=== PATIENT | male | born 1965 | race Caucasian/White ===

== ENCOUNTER → 2018-06-14 11:32 | Outpatient (CLI) | payer MEDICAID, SELFPAY | PROVIDERS: PCP Family Medicine; Visit Provider Ophthalmology | DX: H10.402 Unspecified chronic conjunctivitis, left eye (principal) | CPT/HCPCS: 87070; 87077; 87110; 87140; 87147; 87186; 87205; 87252 ==

== ENCOUNTER 2018-11-07 10:02 | Emergency (ER) | payer MEDICAID, SELFPAY ==
[2018-11-07 10:20] VITALS: BP 146/72; PULSE 74; RESP 18; TEMP 36.8; O2SAT 97
--- NOTE | 2018-11-07 10:43 | ED.EYEPROB ---
HPI - Eye Problem General Chief complaint: Eye Problems Stated complaint: Left eye is swollen Time Seen by Provider: 11/07/18 10:43 Source: patient Mode of arrival: ambulatory Limitations: no limitations History of Present Illness HPI Narrative: 53-year-old male here for evaluation of a reddened area to his left eye. He does were glasses. Many years ago he had PRK LASIK performed. 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 States he has tried to get a referral from his speech language therapist to see a ?specialist? but this has not been done. No fevers. No sinus congestion. Does have some blurry vision however no other eye changes Related Data Previous Rx's Medication Instructions Recorded clindamycin HCl 300 mg PO Q6H 5 Days #20 cap 11/07/18 Allergies Allergy/AdvReac Type Severity Reaction Status Date / Time No Known Drug Allergies Allergy Verified 11/07/18 10:30 Review of Systems Constitutional Denies fever(s) and Denies headache(s) Eyes Comments: Redness to the left eye blurry vision of the left eye ENT Ears, Nose, Mouth, and Throat: Denies vertigo, Denies headache(s), Denies disequilibrium and Denies sore throat Cardiovascular Denies chest pain and Denies dyspnea Respiratory Denies dyspnea Integumentary/Breasts Comments: Redness to the left eye Neurologic Denies abnormal speech, Denies confusion, Denies vertigo, Denies headache(s) and Denies disequilibrium Psychiatric Denies confusion Hematologic/Lymphatic Denies easy bleeding and Denies easy bruising PFSH Medical History Sleep apnea (Acute) Surgical History (Updated 09/25/17 @ 06:02 by Conversion Provider) Status post arthroscopy Family History (Updated 01/30/17 @ 00:00 by Conversion Provider) Father Age: 86 Leukemia Mother Age: 79 Multiple sclerosis Social History Smoking Status: Never smoker Family History (Updated 01/30/17 @ 00:00 by Conversion Provider) Father Age: 86 Leukemia Mother Age: 79 Multiple sclerosis Social History Smoking Status: Never smoker Exam Initial Vital Signs Initial Vital Signs: Vital Signs Temperature 98.2 F 11/07/18 10:20 Pulse Rate 74 11/07/18 10:20 Respiratory Rate 18 11/07/18 10:20 Blood Pressure 146/72 H 11/07/18 10:20 Pulse Oximetry 97 11/07/18 10:20 Const General: cooperative, comfortable, well developed, well groomed and No acute distress Orientation: alert, awake and oriented x3 HENMT Head: normal to inspection and normocephalic Eyes Other: Right eye unremarkable Left eye with redness and swelling in the superior medial canthus. Was able to express some purulent material from this area. The eye itself to include the sclera is unremarkable. Resp Effort & Inspection: normal respiratory effort Skin Other: There is no surrounding erythema to the left eye Neuro General: alert and awake Extrem General: normal to inspection and capillary refill normal Course Vital Signs - 8 hr 11/07/18 10:20 Temperature 98.2 F Pulse Rate 74 Respiratory Rate 18 Blood Pressure 146/72 H Pulse Oximetry 97 MDM - Eye Problem MDM Narrative Medical decision making narrative: Patient with what appears to be Dacryocystitis. Will place on antibiotics. We discussed other treatment options and return precautions. He expressed understanding and agreement with plan. Discharge Plan Departure Patient Disposition: Home Clinical Impression: Dacrocystitis Qualifiers: Laterality: left Qualified Code(s): H04.302 - Unspecified dacryocystitis of left lacrimal passage Instructions: DI for Red Eye Activity Restrictions/Additional Instructions: Use antibiotics as directed. Also recommend that you do light pressure with a warm washcloth over the infected area. You can contact the health human resources project coordinator here at the hospital at [phone] to help establish a primary provider. Return to the emergency department for any new or worsening symptoms Prescriptions: New clindamycin HCl 300 mg capsule 300 mg PO Q6H 5 Days Qty: 20 RF: 0 Referrals: Destiny Melendez MD [Primary Care Provider] -
== END 2018-11-07 11:11 | disposition home or self-care (01) ==
PROVIDERS: Emergency Provider Emergency Medicine; PCP Family Medicine
DX: H04.302 Unspecified dacryocystitis of left lacrimal passage (principal)
CPT/HCPCS: 99282; 99283

== ENCOUNTER 2019-03-13 08:57 | Emergency (ER) | payer MEDICAID, SELFPAY ==
[2019-03-13] VITALS (10 sets, daily range): BP systolic 130–154; BP diastolic 71–87; PULSE 71–92; RESP 15–96; TEMP 36.7–38.3; O2SAT 92–99
--- NOTE | 2019-03-13 09:18 | DI.RAD.S_ITS ---
PROCEDURE: XR CHEST 1V INDICATIONS: suspected sepsis TECHNIQUE: One view of the chest was acquired. COMPARISON: None. FINDINGS: Surgical changes and devices: None. Lungs and pleura: Lungs are clear. No pleural effusions or pneumothorax. Mediastinum: Mediastinal contours appear normal. Heart size is normal. Bones and chest wall: No suspicious bony lesions. Left shoulder clavicle osteophyte. Overlying soft tissues appear unremarkable. IMPRESSION: No acute cardiopulmonary abnormality. Dictated by: Alejandro Hilton M.D. on 03/13/2019 at 10:23 Approved by: Alejandro Hilton M.D. on 03/13/2019 at 10:24
--- NOTE | 2019-03-13 09:57 | ED.FEVER ---
HPI - Fever General Chief Complaint: Fever Stated Complaint: headache/dry cough/fever/chills x7days Time Seen by Provider: 03/13/19 09:15 Source: patient Mode of arrival: Ambulatory History of Present Illness HPI Narrative: Patient presents emergency department complaining of 6 days of fatigue, chills, sweats, dry cough, sore throat, and body aches. Patient also states he has a throbbing headache. patient has been having nausea and vomiting for the last several days, as well. No sick contacts that he knows of. Patient is otherwise healthy. No chest pain or shortness of breath. No abdominal pain. No dysuria or back pain. no sore throat or ear pain. no diarrhea. The only other thing patient has noticed was that he had what appeared to be an insect bite on his right knee and that this developed some redness around the area. It has not been spreading, however. Related Data Previous Rx's Medication Instructions Recorded ondansetron 4 mg PO Q6H PRN #10 tab 03/13/19 Allergies Allergy/AdvReac Type Severity Reaction Status Date / Time No Known Drug Allergies Allergy Verified 03/13/19 09:17 Review of Systems Constitutional Constitutional: Reports body ache(s), Reports chills, Reports fatigue, Reports fever(s), Denies frequent falls, Reports headache(s), Denies lethargy and Denies weakness Eyes Eyes: Denies change in vision, Denies eye discharge, Denies irritation and Denies loss of vision ENT Ears, Nose, Mouth, and Throat: Denies change in voice, Denies dizziness, Reports headache(s), Denies neck pain, Reports sore throat and Denies throat swelling Cardiovascular Cardiovascular: Denies chest pain, Denies irregular heart rhythm, Denies lightheadedness, Denies palpitations, Denies dyspnea, Denies dyspnea on exertion and Denies orthopnea Respiratory Respiratory: Reports cough, Denies dyspnea, Denies dyspnea on exertion and Denies wheezing Gastrointestinal Gastrointestinal: Denies abdominal pain, Denies change in bowel habits, Denies diarrhea, Reports nausea and Reports vomiting Genitourinary Genitourinary: Denies hematuria, Denies flank pain, Denies urinary incontinence and Denies urinary urgency Musculoskeletal Musculoskeletal: Denies back pain, Denies muscle weakness, Denies neck pain, Denies numbness and Denies tingling Integumentary/Breasts Skin/Breast: Denies pruritus, Denies erythema, Denies rash and Denies wounds Neurologic Neurologic: Denies behavioral changes, Denies confusion, Denies dizziness, Denies frequent falls, Reports headache(s), Denies loss of vision, Denies numbness, Denies tingling and Denies weakness Psychiatric Psychiatric: Denies anxiety, Denies behavioral changes, Denies confusion, Denies depression, Denies homicidal ideation and Denies suicidal ideation Endocrine Endocrine: Reports fatigue, Denies flushing and Denies palpitations Hematologic/Lymphatic Hematologic/Lymphatic: Denies easy bruising Allergic/Immunologic Allergic/Immunologic: Denies urticaria, Denies throat swelling and Denies wheezing Patient History Medical History Sleep apnea (Acute) Surgical History Status post arthroscopy Family History (Updated 01/30/17 @ 00:00 by Conversion Provider) Father Age: 87 Leukemia Mother Age: 80 Multiple sclerosis Social History Smoking Status: Never smoker Family History Father Age: 87 Leukemia Mother Age: 80 Multiple sclerosis Social History Smoking Status: Never smoker alcohol intake frequency: a few times a week Alcohol type: beer Substance Use Type: does not use Exam Initial Vital Signs Initial Vital Signs: Vital Signs Temperature 101 F H 03/13/19 09:00 Pulse Rate 92 H 03/13/19 09:00 Respiratory Rate 18 03/13/19 09:00 Blood Pressure 154/87 H 03/13/19 09:00 Pulse Oximetry 95 03/13/19 09:00 Const General: cooperative and well developed Nutritional Appearance: well nourished Orientation: alert, awake, oriented x3 and not confused HENMT Head: normocephalic and atraumatic Ears: external ears normal Nose: external nose normal and No nasal discharge Face and sinus: face symmetric and No dry mucous membranes Mouth: oral mucosae normal and moist mucous membranes Teeth and gingiva: dentition normal Throat: tonsils normal and uvula midline Eyes General: appearance normal, both eyes and all related structures Eyelids: eyelids normal Conjunctivae: conjunctivae normal Sclera: sclerae normal Pupils: PERRL EOM: EOM intact bilaterally Neck Neck: normal visual inspection, trachea midline, No lymphadenopathy, No midline deformity and No JVD Lymphatic: No lymphedema Chest Chest: normal inspection of the chest Resp Effort & Inspection: normal respiratory effort, able to speak in complete sentences, no respiratory distress and no use of accessory muscles Auscultation: clear to auscultation bilaterally, no rales, no rhonchi and no wheezes Other: Patient is mildly tachypneic, but without laboring. Cardio Rate: regular rate Rhythm: regular rhythm Heart Sounds: no click, no gallops, no murmurs and no rubs Pulses: normal peripheral pulses GI Inspection: non-distended Palpation: soft, no hepatosplenomegaly, No guarding, No pulsatile mass and No tender Auscultation: normal bowel sounds Back/Spine/Pelvis Back: No CVA tenderness Cervical Spine: cervical ROM normal and No pain with cervical ROM Thoracic/Lumbar Spine: thoracic and lumbar spine normal to inspection Skin General: no rashes or lesions noted, No jaundice and No petechiae Neuro General: alert, oriented x3, gait normal and no focal motor deficits Speech: speech normal Extrem General: full ROM, no clubbing, cyanosis or edema, no pedal edema and no calf tenderness Psych Appearance: well kempt Mental Status: mental status grossly normal Attitude: cooperative Thought Content: normal and suicidality Judgment: judgment good Course Course Course Narrative: Patient was given Tylenol, ibuprofen, IV fluids Zofran. He was worked with influenza test, labs, and chest x-ray, all of which were unremarkable. The patient was found to be feeling quite a bit better after treatment in the emergency department. I discussed with him that at this point, his symptoms are most likely viral in nature, and are consistent with other cases that we have been seen in the emergency department lately. We have discussed home management of the symptoms, as well as the usual indications for return. We have also discussed follow-up. Orders Ordered: Discontinued Medications Acetaminophen (Tylenol) 975 mg PO NOW ONE Stop: 03/13/19 09:19 Last Admin: 03/13/19 09:59 Dose: 975 mg Documented by: TASHA Sodium Chloride (Normal Saline 0.9%) 1,000 mls @ 1,000 mls/hr IV BOLUS ONE Stop: 03/13/19 10:16 Last Infusion: 03/13/19 11:30 Dose: 0 mls/hr Documented by: Admin: 03/13/19 09:58 Dose: 1,000 mls/hr Documented by: [email or web address] Sodium Chloride (Normal Saline 0.9%) 1,000 mls @ 1,000 mls/hr IV BOLUS ONE Stop: 03/13/19 13:44 Last Infusion: 03/13/19 14:11 Dose: 0 mls/hr Documented by: Admin: 03/13/19 12:55 Dose: 1,000 mls/hr Documented by: JUNIOR Ibuprofen (Advil) 800 mg PO NOW ONE Stop: 03/13/19 09:19 Last Admin: 03/13/19 09:59 Dose: 800 mg Documented by: [email or web address] Ondansetron HCl (Zofran) 4 mg IV NOW ONE Stop: 03/13/19 09:31 Last Admin: 03/13/19 10:02 Dose: 4 mg Documented by: [email or web address] Prochlorperazine (Compazine) 10 mg IV NOW ONE Stop: 03/13/19 12:52 Last Admin: 03/13/19 12:55 Dose: 10 mg Documented by: JUNIOR Vital Signs Vital signs: Vital Signs - 8 hr 03/13/19 09:00 Temperature 101 F H Pulse Rate 92 H Respiratory Rate 18 Blood Pressure 154/87 H Pulse Oximetry 95 MDM - Fever Medical Records Attestation: I reviewed the patient's medical records. Lab Data Attestation: I reviewed the patient's lab results. Result diagrams: 03/13/19 09:35 03/13/19 10:01 Labs: Lab Results 03/13/19 03/13/19 03/13/19 Range/Units 09:35 09:35 09:35 WBC 5.5 (4.5-11.0) X10^3/uL RBC 4.26 L (4.5-5.9) X10^6/uL Hgb 14.6 (13.5-17.5) g/dL Hct 41.9 (41-53) % MCV 98.4 (80-100) fL MCH 34.2 H (26-34) PG MCHC 34.8 (30-36) % RDW 13.1 (11.6-14.8) % Plt Count 108 L (150-400) X10^3/uL Neut % (Auto) 67.9 (50-75) % Lymph % (Auto) 16.2 L (25-40) % [place] % (Auto) 14.2 H (3-14) % Eos % (Auto) 1.0 L (2-4) % Baso % (Auto) 0.7 (0-2) % Neut # (Auto) 3700 (7052-3215) /uL Lymph # (Auto) 900 L (4080-8260) /uL [place] # (Auto) 800 (0-900) /uL Eos # (Auto) 100 (0-450) /uL Baso # (Auto) 0 (0-100) /uL PT 16.3 H (10.1-12.7) SECONDS INR 1.4 H (0.9-1.3) APTT 40 H (26.4-36.2) SECONDS Sodium (137-145) mmol/L Potassium (3.4-5.1) mmol/L Chloride (98-107) mmol/L Carbon Dioxide (22-32) mmol/L BUN (9-20) mg/dL Creatinine (0.66-1.25) mg/dL Estimated GFR (>60) mL/min BUN/Creatinine Ratio (6-22) Glucose (70-100) mg/dL Lactate (0.7-2.1) mmol/L Calcium (8.4-10.2) mg/dL Total Bilirubin (0.2-1.3) mg/dL AST (17-59) IU/L ALT (21-72) IU/L Alkaline Phosphatase (38-126) U/L Total Protein (6.3-8.2) g/dL Albumin (3.5-5.0) g/dL Globulin (1.7-4.1) g/dL Albumin/Globulin Ratio (1.0-2.8) Lipase (23-300) U/L Procalcitonin 0.16 (<0.5) ng/mL Urine RBC (0-5/HPF) Urine WBC (0-5/HPF) Urine Bacteria (None) Ur Culture Indicated? Micro UA Comment Influenza A & B (PCR) (Negative) 03/13/19 03/13/19 03/13/19 Range/Units 09:35 10:01 10:15 WBC (4.5-11.0) X10^3/uL RBC (4.5-5.9) X10^6/uL Hgb (13.5-17.5) g/dL Hct (41-53) % MCV (80-100) fL MCH (26-34) PG MCHC (30-36) % RDW (11.6-14.8) % Plt Count (150-400) X10^3/uL Neut % (Auto) (50-75) % Lymph % (Auto) (25-40) % Crenshaw % (Auto) (3-14) % Eos % (Auto) (2-4) % Baso % (Auto) (0-2) % Neut # (Auto) (3650-5312) /uL Lymph # (Auto) (8017-3794) /uL [place]shaw # (Auto) (0-900) /uL Eos # (Auto) (0-450) /uL Baso # (Auto) (0-100) /uL PT (10.1-12.7) SECONDS INR (0.9-1.3) APTT (26.4-36.2) SECONDS Sodium 131 L (137-145) mmol/L Potassium 3.9 (3.4-5.1) mmol/L Chloride 97 L (98-107) mmol/L Carbon Dioxide 26 (22-32) mmol/L BUN 6 L (9-20) mg/dL Creatinine 0.50 L (0.66-1.25) mg/dL Estimated GFR > 60.0 (>60) mL/min BUN/Creatinine Ratio 12.0 (6-22) Glucose 145 H (70-100) mg/dL Lactate 1.7 (0.7-2.1) mmol/L Calcium 8.2 L (8.4-10.2) mg/dL Total Bilirubin 1.6 H (0.2-1.3) mg/dL AST 89 H (17-59) IU/L ALT 33 (21-72) IU/L Alkaline Phosphatase 142 H (38-126) U/L Total Protein 8.1 (6.3-8.2) g/dL Albumin 3.6 (3.5-5.0) g/dL Globulin 4.5 H (1.7-4.1) g/dL Albumin/Globulin Ratio 0.8 L (1.0-2.8) Lipase 123 (23-300) U/L Procalcitonin (<0.5) ng/mL Urine RBC (0-5/HPF) Urine WBC (0-5/HPF) Urine Bacteria (None) Ur Culture Indicated? Micro UA Comment Influenza A & B (PCR) Negative (Negative) 03/13/19 Range/Units 12:46 WBC (4.5-11.0) X10^3/uL RBC (4.5-5.9) X10^6/uL Hgb (13.5-17.5) g/dL Hct (41-53) % MCV (80-100) fL MCH (26-34) PG MCHC (30-36) % RDW (11.6-14.8) % Plt Count (150-400) X10^3/uL Neut % (Auto) (50-75) % Lymph % (Auto) (25-40) % C[place]shaw % (Auto) (3-14) % Eos % (Auto) (2-4) % Baso % (Auto) (0-2) % Neut # (Auto) (1040-5088) /uL Lymph # (Auto) (4758-7912) /uL C[place]shaw # (Auto) (0-900) /uL Eos # (Auto) (0-450) /uL Baso # (Auto) (0-100) /uL PT (10.1-12.7) SECONDS INR (0.9-1.3) APTT (26.4-36.2) SECONDS Sodium (137-145) mmol/L Potassium (3.4-5.1) mmol/L Chloride (98-107) mmol/L Carbon Dioxide (22-32) mmol/L BUN (9-20) mg/dL Creatinine (0.66-1.25) mg/dL Estimated GFR (>60) mL/min BUN/Creatinine Ratio (6-22) Glucose (70-100) mg/dL Lactate (0.7-2.1) mmol/L Calcium (8.4-10.2) mg/dL Total Bilirubin (0.2-1.3) mg/dL AST (17-59) IU/L ALT (21-72) IU/L Alkaline Phosphatase (38-126) U/L Total Protein (6.3-8.2) g/dL Albumin (3.5-5.0) g/dL Globulin (1.7-4.1) g/dL Albumin/Globulin Ratio (1.0-2.8) Lipase (23-300) U/L Procalcitonin (<0.5) ng/mL Urine RBC None seen (0-5/HPF) Urine WBC None seen (0-5/HPF) Urine Bacteria None seen (None) Ur Culture Indicated? Cult not indicated Micro UA Comment Microscopic normal Influenza A & B (PCR) (Negative) Point of Care Testing Rapid Strep A Negative Urine Dip Bedside Urine Glucose 100 mg/dl Bedside Urine Bilirubin - Negative Bedside Urine Ketone + 15 Urine Specific [place] 1.010 Bedside Urine Occult Blood - Negative Bedside Urine pH 6.5 Bedside Urine Protein +/- 15 Bedside Urine Urobilinogen 1+ 2mg Bedside Urine Nitrite - Negative Bedside Urine Leukocytes +/- 15 Esterase Imaging Data Chest x-ray: Radiologist's impression: [address] [address] XRay Report Signed Patient: Gavin Gomez [facility]#: [id number] : 1965Acct:[id number] Age/Sex: 53 / MDate of Service: 03/13/19 Loc: ED Accession Number: [id number] Procedure: XR chest 1V Ordering Provider: Jaleesa Dougherty MD PROCEDURE: XR CHEST 1V INDICATIONS: suspected sepsis TECHNIQUE: One view of the chest was acquired. COMPARISON: None. FINDINGS: Surgical changes and devices: None. Lungs and pleura: Lungs are clear. No pleural effusions or pneumothorax. Mediastinum: Mediastinal contours appear normal. Heart size is normal. Bones and chest wall: No suspicious bony lesions. Left shoulder clavicle osteophyte. Overlying soft tissues appear unremarkable. IMPRESSION: No acute cardiopulmonary abnormality. Dictated by: Alejandro Hilton M.D. on 03/13/2019 at 10:23 Approved by: Alejandro Hilton M.D. on 03/13/2019 at 10:24 Discharge Plan Departure Patient Disposition: Home Clinical Impression: Viral infection Discharge Date/Time: 03/13/19 14:15 Instructions: DI for Viral Syndrome, DI for Fever (Symptom) -- Adult Activity Restrictions/Additional Instructions: Your labs, chest x-ray, and influenza test all looked good. You most likely have one of the many influenza-like viruses that go around this time of year, but do not trigger a positive flu test. Please get plenty of fluids to drink, and take ibuprofen 600mg every 6 hours and Tylenol 650 mg every 4 hours for fever. You may take the nausea medicine, as needed. Prescriptions: New ondansetron 4 mg tablet,disintegrating 4 mg PO Q6H PRN (Reason: nausea and vomiting) Qty: 10 RF: 0 Referrals: Destiny Melendez MD [Primary Care Provider] -
[2019-03-13] MEDS: SODIUM CHLORIDE 0.9% 1,000 ML 1000 ML IV ×2 (09:58→12:55)
[2019-03-13] MEDS: IBUPROFEN 400 MG TABLET 800 MG PO (09:59)
[2019-03-13] MEDS: ACETAMINOPHEN 325 MG TABLET 975 MG PO (09:59)
[2019-03-13] MEDS: ONDANSETRON 4 MG/2 ML INJ IV (10:02)
[2019-03-13 10:03] LABS: INR 1.4 (0.9-1.3); Prothrombin Time 16.3 SECONDS (10.1-12.7)
[2019-03-13 10:06] LABS: Lactate (Lactic Acid) 1.7 mmol/L (0.7-2.1); PTT Partial Thromboplastin Tim 40 SECONDS (26.4-36.2)
[2019-03-13 10:09] LABS: Add Manual Diff / Slide Review NO; Basophils Absolute Auto 0 /uL (0-100); Basophils Percent Auto 0.7 % (0-2); Eosinophils Absolute Auto 100 /uL (0-450); Hematocrit 41.9 % (41-53); Hemoglobin 14.6 g/dL (13.5-17.5); Lymphocytes Absolute Auto 900 /uL (1100-4500); Lymphocytes Percent Auto 16.2 % (25-40); Mean Corpuscular HGB Conc 34.8 % (30-36); Mean Corpuscular Hemoglobin 34.2 PG (26-34); Mean Corpuscular Volume 98.4 fL (80-100); Monocytes Absolute Auto 800 /uL (0-900); Monocytes Percent Auto 14.2 % (3-14); Neutrophils Absolute Auto 3700 /uL (1500-7000); Neutrophils Percent Auto 67.9 % (50-75); Platelet Count 108 X10^3/uL (150-400); Red Blood Cell Count 4.26 X10^6/uL (4.5-5.9); Red Cell Distribution Width 13.1 % (11.6-14.8); White Blood Cell Count 5.5 X10^3/uL (4.5-11.0)
[2019-03-13 10:22] LABS: Alanine Aminotransferase 33 IU/L (21-72); Albumin 3.6 g/dL (3.5-5.0); Albumin Globulin Ratio 0.8 (1.0-2.8); Alkaline Phosphatase 142 U/L (38-126); Aspartate Aminotransferase 89 IU/L (17-59); Bilirubin Total 1.6 mg/dL (0.2-1.3); Blood Urea Nitrogen 6 mg/dL (9-20); Calcium 8.2 mg/dL (8.4-10.2); Carbon Dioxide 26 mmol/L (22-32); Chloride 97 mmol/L (98-107); Estimated Glomerular Filt Rate > 60.0 mL/min (>60); Globulin 4.5 g/dL (1.7-4.1); Glucose 145 mg/dL (70-100); HEMOLYSIS < 15 (0-50); Lipase 123 U/L (23-300); Potassium 3.9 mmol/L (3.4-5.1); Sodium 131 mmol/L (137-145); Total Protein 8.1 g/dL (6.3-8.2)
[2019-03-13 10:47] LABS: Influenza A and B by PCR Rapid Negative (Negative)
[2019-03-13 10:52] LABS: Procalcitonin 0.16 ng/mL (<0.5)
[2019-03-13] MEDS: PROCHLORPERAZINE 10 MG/2 ML VIAL IV (12:55)
[2019-03-13 12:59] LABS: Bacteria Urine None Seen; RBC Urine None Seen (0-5/HPF); WBC Urine None Seen (0-5/HPF)
[2019-03-13 13:12] LABS: Culture Indicated Urine Cult Not Indicated; Urine Comments Microscopic Normal
== END 2019-03-13 14:15 | disposition home or self-care (01) ==
PROVIDERS: Emergency Provider Emergency Medicine; PCP Family Medicine
DX: B34.9 Viral infection, unspecified (principal); R51 Headache; R50.9 Fever, unspecified; R05 Cough
CPT/HCPCS: 36415; 71045; 80053; 81003; 81015; 83605; 83690; 84145; 85025; 85610; 85730; 87040; 87400; 87502; 87880; 93005; 96361; 96374; 96375; 99285; J0780; J2405

== ENCOUNTER 2019-03-18 08:57 | Inpatient (IN) | payer MEDICAID, SELFPAY ==
[2019-03-18] VITALS (16 sets, daily range): BP systolic 119–158; BP diastolic 72–95; PULSE 76–99; RESP 17–24; TEMP 36.1–37.4; O2SAT 88–93; BMI 37.0
--- NOTE | 2019-03-18 09:16 | DI.RAD.S_ITS ---
PROCEDURE: XR CHEST 2V INDICATIONS: SOB TECHNIQUE: 2 views of the chest were acquired. COMPARISON: [facility], CR, XR CHEST 1V, 03/13/2019, 10:01. FINDINGS: Surgical changes and devices: None. Lungs and pleura: Patchy consolidation has developed in the left midlung and left lung base.. No pleural effusions or pneumothorax. Mediastinum: Mediastinal contours are normal. Heart size is normal. Bones and chest wall: No suspicious bony abnormalities. Soft tissues appear unremarkable. IMPRESSION: Multifocal left mid and lower lobe pneumonia. Recommend radiographic followup to document resolution and exclude underlying pulmonary nodule. Dictated by: Wade Sahu M.D. on 03/18/2019 at 10:38 Approved by: Wade Sahu M.D. on 03/18/2019 at 10:39
[2019-03-18] MEDS: ALBUTEROL/IPRATROPIUM 3 ML AMPUL INH (09:19)
--- NOTE | 2019-03-18 09:31 | ED.SOB ---
HPI - SOB/Dyspnea General Chief Complaint: Shortness of Breath/Dyspnea Stated Complaint: difficulty breathing Time Seen by Provider: 03/18/19 09:00 Source: patient Mode of arrival: Ambulatory Limitations: no limitations History of Present Illness HPI Narrative: 53-year-old male nonsmoker with benign medical history returns to the emergency department with a chief complaint of ongoing if not worsening upper respiratory and systemic complaints. He was seen and evaluated last week after having 6 days of fatigue, chills, sweats and dry cough as well as sore throat. He had a thorough evaluation with a clear chest x-ray and received a diagnosis of acute viral syndrome. On arrival this morning he has pulse ox of 80% on room air in obvious respiratory distress. He has anterior chest pain that is sharp and stabbing, worse with deep breath and palpation. MD Complaint: shortness of breath, cough and pain with inspiration Onset (ago): week(s) Context: recent illness Severity: moderate Consistency/Duration: constant Relieving factors: oxygen and rest Exacerbating factors: movement, coughing and inspiration Associated symptoms: fever and cough Treatment prior to arrival: none Related Data Home oxygen amount: none Home Medications Medication Instructions Recorded Confirmed No Known Home Medications 03/18/19 03/18/19 Allergies Allergy/AdvReac Type Severity Reaction Status Date / Time No Known Drug Allergies Allergy Verified 03/13/19 09:17 Review of Systems Constitutional Constitutional: Reports chills, Reports fatigue, Reports fever(s), Denies frequent falls, Denies lethargy and Denies weakness Eyes Eyes: Denies change in vision, Denies eye discharge, Denies irritation and Denies loss of vision ENT Ears, Nose, Mouth, and Throat: Denies change in voice, Denies dizziness, Denies neck pain, Denies sore throat and Denies throat swelling Cardiovascular Cardiovascular: Reports chest pain, Denies irregular heart rhythm, Denies lightheadedness, Denies palpitations, Reports dyspnea, Denies dyspnea on exertion and Denies orthopnea Respiratory Respiratory: Reports cough, Reports dyspnea, Denies dyspnea on exertion and Denies wheezing Gastrointestinal Gastrointestinal: Denies abdominal pain, Denies change in bowel habits, Denies diarrhea, Denies nausea and Denies vomiting Genitourinary Genitourinary: Denies hematuria, Denies flank pain, Denies urinary incontinence and Denies urinary urgency Musculoskeletal Musculoskeletal: Denies back pain, Denies muscle weakness, Denies neck pain, Denies numbness and Denies tingling Integumentary/Breasts Skin/Breast: Denies pruritus, Denies erythema, Denies rash and Denies wounds Neurologic Neurologic: Denies behavioral changes, Denies confusion, Denies dizziness, Denies frequent falls, Denies loss of vision, Denies numbness, Denies tingling and Denies weakness Psychiatric Psychiatric: Denies anxiety, Denies behavioral changes, Denies confusion, Denies depression, Denies homicidal ideation and Denies suicidal ideation Endocrine Endocrine: Reports fatigue, Denies flushing and Denies palpitations Hematologic/Lymphatic Hematologic/Lymphatic: Denies easy bruising Allergic/Immunologic Allergic/Immunologic: Denies urticaria, Denies throat swelling and Denies wheezing Patient History Medical History Sleep apnea (Acute) Surgical History Status post arthroscopy Family History Father Age: 87 Leukemia Mother Age: 80 Multiple sclerosis Social History Smoking Status: Never smoker alcohol intake frequency: a few times a week Alcohol type: beer Substance Use Type: does not use Exam Narrative Exam Narrative: GENERAL: [53] year old patient appears stated age. Well-nourished, well-developed patient, in mild distress. Ill-appearing, diaphoretic HEAD: Atraumatic. Normocephalic. EYES: Pupils equal round and reactive. Extraocular motions intact. No scleral icterus. No injection or drainage. ENT: Nose without bleeding, purulent drainage. Throat without erythema, tonsillar hypertrophy or exudate. Airway patent. NECK: Trachea midline. Non tender CARDIOVASCULAR: Regular rate and rhythm without murmurs, gallops, or rubs. RESPIRATORY: Coarse breath sounds in all haley GASTROINTESTINAL: Abdomen soft, non-tender, nondistended. EXTREMITIES: No edema or joint tenderness. BACK: Nontender without deformity or crepitance. No flank tenderness. NEURO: AOx3. SKIN: No rash or erythema of visible areas Initial Vital Signs Initial Vital Signs: Vital Signs Temperature 99.3 F 03/18/19 09:04 Pulse Rate 99 H 03/18/19 09:04 Respiratory Rate 24 03/18/19 09:04 Blood Pressure 144/80 H 03/18/19 09:04 Pulse Oximetry 88 L 03/18/19 09:04 Course Orders Ordered: ED Orders 03/18/19 09:16 XR chest 2V Stat Arterial Blood Gas Stat Blood Culture Stat 03/18/19 09:45 Basic Metabolic Panel Stat Complete Blood Count AUTO DIFF Stat Influenza A and B by PCR Rapid Stat Lactate (Lactic Acid) Stat Procalcitonin Stat Troponin & CK Cardiac Panel Stat 03/18/19 09:50 Arterial Blood Gas Routine Acetaminophen (Tylenol) 650 mg PO Q6HR PRN PRN Reason: As Needed for Fever/Mild Pain Calcium Carbonate (Tums) 1,000 mg PO Q4HR PRN PRN Reason: Dyspepsia Enoxaparin Sodium (Lovenox) 40 mg SUBCUT DAILY MARIE Ceftriaxone Sodium/Dextrose (Rocephin) 1 gm in 50 mls @ 100 mls/hr IV Q24H MARIE Azithromycin 500 mg/ Dextrose 250 mls @ 250 mls/hr IV Q24H MARIE Ibuprofen (Advil) 600 mg PO Q6HR PRN PRN Reason: As Needed for Fever/Mild Pain Ondansetron HCl (Zofran Odt) 4 mg PO Q8HR PRN PRN Reason: Nausea And Vomiting Discontinued Medications Albuterol/Ipratropium (Duoneb) 3 ml INH NOW ONE Stop: 03/18/19 09:13 Last Admin: 03/18/19 09:19 Dose: 3 ml Documented by: MARLEE Albuterol/Ipratropium (Duoneb) 3 ml INH NOW ONE Stop: 03/18/19 09:15 Last Admin: 03/18/19 11:08 Dose: Not Given Documented by: SONI Sodium Chloride (Normal Saline 0.9%) 1,000 mls @ 1,000 mls/hr IV BOLUS ONE Stop: 03/18/19 10:13 Last Infusion: 03/18/19 12:22 Dose: 0 mls/hr Documented by: Admin: 03/18/19 09:43 Dose: 1,000 mls/hr Documented by: ANTHONY Azithromycin 500 mg/ Dextrose 250 mls @ 250 mls/hr IV NOW ONE Stop: 03/18/19 10:49 Last Infusion: 03/18/19 12:55 Dose: 0 mls/hr Documented by: Admin: 03/18/19 11:44 Dose: 250 mls/hr Documented by: SONI Methylprednisolone (Solu-Medrol 125 Mg Vial) 125 mg IV NOW ONE Stop: 03/18/19 09:15 Last Admin: 03/18/19 09:43 Dose: 125 mg Documented by: ANTHONY Vital Signs Vital signs: Vital Signs - 8 hr 03/18/19 09:04 03/18/19 09:31 03/18/19 11:00 Temperature 99.3 F Pulse Rate 99 H 85 87 Respiratory Rate 24 20 17 Blood Pressure 144/80 H Blood Pressure [Left Arm] 158/78 H Pulse Oximetry 88 L 90 L MDM - SOB/Dyspnea Lab Data Result diagrams: 03/18/19 09:45 03/18/19 09:45 Labs: Lab Results 03/18/19 03/18/19 03/18/19 Range/Units 09:45 09:45 09:45 WBC 5.6 (4.5-11.0) X10^3/uL RBC 4.49 L (4.5-5.9) X10^6/uL Hgb 15.1 (13.5-17.5) g/dL Hct 44.1 (41-53) % MCV 98.2 (80-100) fL MCH 33.7 (26-34) PG MCHC 34.4 (30-36) % RDW 13.1 (11.6-14.8) % Plt Count 136 L (150-400) X10^3/uL Neut % (Auto) 78.2 H (50-75) % Lymph % (Auto) 13.3 L (25-40) % [place] % (Auto) 7.0 (3-14) % Eos % (Auto) 1.0 L (2-4) % Baso % (Auto) 0.5 (0-2) % Neut # (Auto) 4400 (2854-2100) /uL Lymph # (Auto) 700 L (6014-0300) /uL [place] # (Auto) 400 (0-900) /uL Eos # (Auto) 100 (0-450) /uL Baso # (Auto) 0 (0-100) /uL ABG pH (7.35-7.45) ABG pCO2 (35-45) mmHg ABG pO2 (80-100) mmHg ABG HCO3 (22-26) mmol/L ABG Total CO2 (21-31) mmol/L ABG O2 Saturation (95-100) % ABG Base Excess (-2-2) mmol/L FiO2 Sodium 133 L (137-145) mmol/L Potassium 4.0 (3.4-5.1) mmol/L Chloride 95 L (98-107) mmol/L Carbon Dioxide 25 (22-32) mmol/L BUN 9 (9-20) mg/dL Creatinine 0.50 L (0.66-1.25) mg/dL Estimated GFR > 60.0 (>60) mL/min BUN/Creatinine Ratio 18.0 (6-22) Glucose 134 H (70-100) mg/dL Lactate (0.7-2.1) mmol/L Calcium 8.3 L (8.4-10.2) mg/dL Total Creatine Kinase 230 H (55-170) U/L CK-MB (CK-2) 0.92 (<2.37) ng/mL CK-MB (CK-2) Rel Index 0.4 L (1.5-5.0) % Troponin I < 0.012 (0.01-0.034) ng/mL Procalcitonin 0.78 H (<0.5) ng/mL Influenza A & B (PCR) (Negative) 03/18/19 03/18/19 03/18/19 Range/Units 09:45 09:45 09:50 WBC (4.5-11.0) X10^3/uL RBC (4.5-5.9) X10^6/uL Hgb (13.5-17.5) g/dL Hct (41-53) % MCV (80-100) fL MCH (26-34) PG MCHC (30-36) % RDW (11.6-14.8) % Plt Count (150-400) X10^3/uL Neut % (Auto) (50-75) % Lymph % (Auto) (25-40) % [place] % (Auto) (3-14) % Eos % (Auto) (2-4) % Baso % (Auto) (0-2) % Neut # (Auto) (9968-8103) /uL Lymph # (Auto) (0910-8710) /uL [place] # (Auto) (0-900) /uL Eos # (Auto) (0-450) /uL Baso # (Auto) (0-100) /uL ABG pH 7.48 H (7.35-7.45) ABG pCO2 31.5 L (35-45) mmHg ABG pO2 55 L (80-100) mmHg ABG HCO3 23 (22-26) mmol/L ABG Total CO2 24 (21-31) mmol/L ABG O2 Saturation 91 L (95-100) % ABG Base Excess 0.0 (-2-2) mmol/L FiO2 21 Sodium (137-145) mmol/L Potassium (3.4-5.1) mmol/L Chloride (98-107) mmol/L Carbon Dioxide (22-32) mmol/L BUN (9-20) mg/dL Creatinine (0.66-1.25) mg/dL Estimated GFR (>60) mL/min BUN/Creatinine Ratio (6-22) Glucose (70-100) mg/dL Lactate 1.9 (0.7-2.1) mmol/L Calcium (8.4-10.2) mg/dL Total Creatine Kinase (55-170) U/L CK-MB (CK-2) (<2.37) ng/mL CK-MB (CK-2) Rel Index (1.5-5.0) % Troponin I (0.01-0.034) ng/mL Procalcitonin (<0.5) ng/mL Influenza A & B (PCR) Negative (Negative) Discharge Plan Departure Patient Disposition: Admitted As Inpatient Clinical Impression: Acute respiratory failure with hypoxia Community acquired pneumonia Qualifiers: Laterality: left Lung location: unspecified part of lung Qualified Code(s): J18.9 - Pneumonia, unspecified organism Referrals: Destiny Melendez MD [Primary Care Provider] - Admit Date/Time: 03/18/19 11:14 Admit Provider: Destiny Melendez
--- NOTE | 2019-03-18 09:33 | RT ---
Addendum entered by Abhinav Ortiz, RT 03/18/19 11:21: Pt assessed by me. No RT hx. Nonsmker. Here for pneumonia. Pt states no change in his WOB after neb. No RT meds indicated. Original Note: Pt c/o intense anterior chest pain, secondary to coughing, and infact, pt refuses to cough on command. Splint given to pt for split cough with instructions. Informed Dr Hutchinson
[2019-03-18] MEDS: SODIUM CHLORIDE 0.9% 1,000 ML 1000 ML IV (09:43)
[2019-03-18] MEDS: methylPREDNISolone 125 MG/2 ML VIAL IV (09:43)
[2019-03-18 09:57] LABS: Add Manual Diff / Slide Review NO; Basophils Absolute Auto 0 /uL (0-100); Basophils Percent Auto 0.5 % (0-2); Eosinophils Absolute Auto 100 /uL (0-450); Hematocrit 44.1 % (41-53); Hemoglobin 15.1 g/dL (13.5-17.5); Lymphocytes Absolute Auto 700 /uL (1100-4500); Lymphocytes Percent Auto 13.3 % (25-40); Mean Corpuscular HGB Conc 34.4 % (30-36); Mean Corpuscular Hemoglobin 33.7 PG (26-34); Mean Corpuscular Volume 98.2 fL (80-100); Monocytes Absolute Auto 400 /uL (0-900); Neutrophils Absolute Auto 4400 /uL (1500-7000); Neutrophils Percent Auto 78.2 % (50-75); Platelet Count 136 X10^3/uL (150-400); Red Blood Cell Count 4.49 X10^6/uL (4.5-5.9); Red Cell Distribution Width 13.1 % (11.6-14.8); White Blood Cell Count 5.6 X10^3/uL (4.5-11.0)
[2019-03-18 10:09] LABS: Blood Urea Nitrogen 9 mg/dL (9-20); Calcium 8.3 mg/dL (8.4-10.2); Carbon Dioxide 25 mmol/L (22-32); Chloride 95 mmol/L (98-107); Creatine Kinase 230 U/L (55-170); Estimated Glomerular Filt Rate > 60.0 mL/min (>60); Glucose 134 mg/dL (70-100); Sodium 133 mmol/L (137-145)
[2019-03-18 10:10] LABS: Lactate (Lactic Acid) 1.9 mmol/L (0.7-2.1)
--- NOTE | 2019-03-18 10:12 | PC.NURSE ---
02 sat 87/88% o2 2l placed
[2019-03-18 10:15] LABS: pH ABG 7.48 (7.35-7.45)
[2019-03-18 10:16] LABS: HCO3 ABG 23 mmol/L (22-26); PCO2 ABG 31.5 mmHg (35-45); PO2 ABG 55 mmHg (80-100); TCO2 ABG 24 mmol/L (21-31)
[2019-03-18 10:16] LABS: Influenza A and B by PCR Rapid Negative (Negative)
[2019-03-18 10:18] LABS: Fractionated Inspired Oxygen 21; Oxygen Saturation ABG 91 % (95-100)
[2019-03-18 10:21] LABS: Troponin I < 0.012 ng/mL (0.01-0.034)
[2019-03-18 10:24] LABS: CKMB % Relative Index 0.4 % (1.5-5.0); Creatine Kinase MB 0.92 ng/mL (<2.37); HEMOLYSIS 25 (0-50)
[2019-03-18 10:38] LABS: Procalcitonin 0.78 ng/mL (<0.5)
[2019-03-18] MEDS: AZITHROMYCIN 500 MG in DEXTROSE 5% IN WATER 250 ML IV (11:44)
--- NOTE | 2019-03-18 13:09 | PM.HP.1 ---
History of Present Illness History of Present Illness Date Patient Seen: 03/18/19 Time Patient Seen: 12:30 Chief complaint: difficulty breathing Narrative: The pt is a 53-year-old man with a history of sleep apnea who presents with profound shortness of breath and cough. The patient reports that for the past 2 weeks he has been feeling progressively more short of breath. He has also had a cough that is intermittently productive of yellow sputum. At the start of his illness, he had significant nausea with profuse vomiting. This was not necessarily associated with his coughing spells. He has been taking mainly fluids in since that time. For approximately the past week he has been having temperatures at home frequently. The highest temperature he caught on his thermometer was 101?F. He has been feeling wheezing as well. He was evaluated in the emergency department on 03/13 and diagnosed with a viral respiratory illness. Chest x-ray and lab work was completed at that time that was unrevealing. He was discharged home. His shortness of breath continued to worsen, and this morning he felt that he could not catch his breath. He continues to cough. His cough is productive of bloody sputum. He is feeling extremely fatigued. He now also has anterior chest pain that is worse with deep breathing. The patient denies any ear pain, significant sore throat, sinus pain or pressure. He has had mild intermittent diarrhea. He denies any significant abdominal pain. Prior to this illness he was feeling well. Patient History Medical History Sleep apnea (Acute) Surgical History Status post arthroscopy Family & Social History Family History Father Age: 87 Leukemia Mother Age: 80 Multiple sclerosis Safety & Behavioral: Feels Safe in Current Yes Environment Been Physically Hurt or No Threatened By a Person Tobacco & Substance use: Smoking Status Never smoker alcohol intake frequency a few times a week Substance Use Type does not use Meds Home Medications and Allergies Home Medications Medication Instructions Recorded Confirmed Type No Known Home Medications 03/18/19 03/18/19 History Allergies Allergy/AdvReac Type Severity Reaction Status Date / Time No Known Drug Allergies Allergy Verified 03/13/19 09:17 Review of Systems Constitutional Constitutional: Reports body ache(s), Reports chills, Reports fatigue, Reports fever(s), Reports headache(s) and Reports poor appetite ENT Ears, Nose, Mouth, and Throat: Yes headache(s), No nasal congestion, No sinus pain, No sinus pressure and No sore throat Cardiovascular Cardiovascular: Denies fast heart rate, Denies lightheadedness and Reports shortness of breath Respiratory Respiratory: Reports cough, Reports dyspnea and Reports wheezing Gastrointestinal Gastrointestinal: Denies abdominal pain, Denies constipation, Reports vomiting and Denies hematemesis Genitourinary Genitourinary: Denies dysuria Neurologic Neurologic: Reports headache(s) Endocrine Endocrine: Reports fatigue Allergic/Immunologic Allergic/Immunologic: Reports wheezing Exam Vital Signs (past 8 hours): - 03/18/19 09:04 03/18/19 09:31 03/18/19 11:00 Temperature 99.3 F Pulse Rate 99 H 85 87 Respiratory Rate 24 20 17 Blood Pressure 144/80 H Blood Pressure [Left Arm] 158/78 H Pulse Oximetry 88 L 90 L 03/18/19 12:00 03/18/19 12:30 03/18/19 13:00 Temperature 98.7 F Pulse Rate 88 90 97 H Respiratory Rate 22 21 Blood Pressure Blood Pressure [Left Arm] 155/94 H 157/95 H Pulse Oximetry 91 92 92 Oxygen Delivery Method Nasal Cannula Oxygen Flow Rate 2 Narrative Exam Narrative: GEN - NAD, sitting comfortably in bed, sweating, coughing frequently, nasal canula in place HEENT - normocephalic and atraumatic, sclera white, moist mucus membranes, throat non-erythematous and tonsils not enlarged NECK - FROM, no adenopathy, carotids pulse brisk and no JVD HEART - RRR, S1, S2 normal, no S3 or S4, no murmurs LUNGS - symmetric chest rise, no accessory muscles, end-expiratory wheezing lower lung haley, diffuse crackles left worse than right ABD - obese, nondistended, normal bowel sounds, soft, nontender EXT - no cyanosis, clubbing or edema SKIN - no rashes or suspicious lesions NEURO - grossly intact Objective Imaging Chest x-ray: Radiologist's impression: Multifocal left mid and lower lobe pneumonia. Recommend radiographic followup to document resolution and exclude underlying pulmonary nodule. Labs Result Diagrams: 03/18/19 09:45 03/18/19 09:45 Labs: Laboratory Results - last 24 hr 03/18/19 03/18/19 03/18/19 09:45 09:45 09:45 WBC 5.6 RBC 4.49 L Hgb 15.1 Hct 44.1 MCV 98.2 MCH 33.7 MCHC 34.4 RDW 13.1 Plt Count 136 L Neut % (Auto) 78.2 H Lymph % (Auto) 13.3 L [place] % (Auto) 7.0 Eos % (Auto) 1.0 L Baso % (Auto) 0.5 Neut # (Auto) 4400 Lymph # (Auto) 700 L [place] # (Auto) 400 Eos # (Auto) 100 Baso # (Auto) 0 ABG pH ABG pCO2 ABG pO2 ABG HCO3 ABG Total CO2 ABG O2 Saturation ABG Base Excess FiO2 Sodium 133 L Potassium 4.0 Chloride 95 L Carbon Dioxide 25 BUN 9 Creatinine 0.50 L Estimated GFR > 60.0 BUN/Creatinine Ratio 18.0 Glucose 134 H Lactate Calcium 8.3 L Total Creatine Kinase 230 H CK-MB (CK-2) 0.92 CK-MB (CK-2) Rel Index 0.4 L Troponin I < 0.012 Procalcitonin 0.78 H Influenza A & B (PCR) 03/18/19 03/18/19 03/18/19 09:45 09:45 09:50 WBC RBC Hgb Hct MCV MCH MCHC RDW Plt Count Neut % (Auto) Lymph % (Auto) [place] % (Auto) Eos % (Auto) Baso % (Auto) Neut # (Auto) Lymph # (Auto) [place] # (Auto) Eos # (Auto) Baso # (Auto) ABG pH 7.48 H ABG pCO2 31.5 L ABG pO2 55 L ABG HCO3 23 ABG Total CO2 24 ABG O2 Saturation 91 L ABG Base Excess 0.0 FiO2 21 Sodium Potassium Chloride Carbon Dioxide BUN Creatinine Estimated GFR BUN/Creatinine Ratio Glucose Lactate 1.9 Calcium Total Creatine Kinase CK-MB (CK-2) CK-MB (CK-2) Rel Index Troponin I Procalcitonin Influenza A & B (PCR) Negative Assessment & Plan Assessment & Plan narrative: Pt is a 53yo man with sleep apnea who presented with profound SOB and cough, found to be hypoxic to 80% in the ER. CXR revealed significant multilobar pneumonia. 1) Acute hypoxic respiratory failure due to community acquired pneumonia: Negative flu swab - Continue oxygen supplementation, titrate as tolerated - Received Ceftriaxone and Albuterol in the ER, will continue - Received Dexamethasone and Albuterol in the ER. Mild wheezing on exam. RT to consult. May need repeat steroid dosing tomorrow. - Continuous pulse ox while on oxygen - Will need repeat CXR prior to d/c 2) Nause and vomiting: Most likely due to coughing and possible underlying viral illness - Zofran PRN FEN: General diet as tolerated DVT PPx: Lovenox Code: Full Dispo: Anticipate at least 2 midnights due to severity of pneumonia and hypoxia at presentation.
--- NOTE | 2019-03-18 13:45 | PC.NURSE ---
PT ARRIVED TO ICU FLOOR CARE PT. HE IS ALERT/ORIENTED AND OBVIOUS HAVING DIFFICULTY CATCHING BREATH. HIS LUNGS ARE COARSE AND EXP WHEEZE AUSCULTATED - HE IS ON 3L NC O2 WITH SPO2 89-91%- DRY STRONG COUGH NOTED- HE DENIES PAIN AT THIS TIME- REVIEWED PLAN OF CARE AND ORIENTED TO ROOM AND BED CONTROLS- PT HAS NOT VOIDED YET SINCE ADMISSION FROM ED- SKIN IS DIAPHORETIC
[2019-03-18] MEDS: CEFTRIAXONE 1 GM/50 ML FROZ.PIGGY IV (14:16)
[2019-03-18] MEDS: ACETAMINOPHEN 325 MG TABLET 650 MG PO (15:47)
[2019-03-18] MEDS: ZOLPIDEM 5 MG TABLET PO (20:35)
[2019-03-19] VITALS (16 sets, daily range): BP systolic 120–142; BP diastolic 67–85; PULSE 62–77; RESP 20–22; TEMP 36–37.3; O2SAT 89–98
[2019-03-19 05:22] LABS: Add Manual Diff / Slide Review NO; Basophils Absolute Auto 0 /uL (0-100); Basophils Percent Auto 0.4 % (0-2); Eosinophils Absolute Auto 0 /uL (0-450); Hematocrit 43.9 % (41-53); Hemoglobin 15.1 g/dL (13.5-17.5); Lymphocytes Absolute Auto 700 /uL (1100-4500); Lymphocytes Percent Auto 11.9 % (25-40); Mean Corpuscular HGB Conc 34.4 % (30-36); Mean Corpuscular Hemoglobin 33.9 PG (26-34); Mean Corpuscular Volume 98.6 fL (80-100); Monocytes Absolute Auto 400 /uL (0-900); Monocytes Percent Auto 6.2 % (3-14); Neutrophils Absolute Auto 4900 /uL (1500-7000); Neutrophils Percent Auto 81.5 % (50-75); Platelet Count 135 X10^3/uL (150-400); Red Blood Cell Count 4.45 X10^6/uL (4.5-5.9); Red Cell Distribution Width 13.1 % (11.6-14.8)
[2019-03-19 05:31] LABS: BUN Creatinine Ratio 27.5 (6-22); Blood Urea Nitrogen 11 mg/dL (9-20); Calcium 8.6 mg/dL (8.4-10.2); Carbon Dioxide 28 mmol/L (22-32); Chloride 103 mmol/L (98-107); Estimated Glomerular Filt Rate > 60.0 mL/min (>60); Glucose 162 mg/dL (70-100); HEMOLYSIS < 15 (0-50); Potassium 4.1 mmol/L (3.4-5.1); Sodium 138 mmol/L (137-145)
--- NOTE | 2019-03-19 07:04 | PC.NURSE ---
NOC Shift: Pt sleeping well throughout night, however requiring increased oxygen needs per heated high flow NC due to decreasing sats on 6L bleed in to home CPAP unit. Placed on 45L at 40% and increased to 45% through shift to keep sats above 90 while sleeping. Coarse, wheezes throughout lungs increasing non productive cough. VSS, no tele. Denies SOB, discomfort.
--- NOTE | 2019-03-19 08:07 | DI.RAD.S_ITS ---
PROCEDURE: XR CHEST 1V INDICATIONS: f/u pneumonia, increased O2 requirement TECHNIQUE: One view of the chest was acquired. COMPARISON: [facility], CR, XR CHEST 2V, 03/18/2019, 10:15. FINDINGS: Surgical changes and devices: None. Lungs and pleura: Interval increase in patchy opacities within the left mid and lower lung zones which appear slightly more confluent compared to prior study. Small patchy right midlung opacity is also noted. Mild hazy opacity of the left costophrenic angle suggesting a small pleural effusion. No pneumothorax. Mediastinum: Mediastinal contours appear normal. Heart size is normal. Bones and chest wall: No suspicious bony lesions. Overlying soft tissues appear unremarkable. IMPRESSION: 1. Mild interval progression of patchy ill-defined left mid and lower lung opacities which appear slightly more confluent on today's examination. Likely small left pleural effusion. Findings are again compatible with multifocal pneumonia. 2. Small patchy right midlung zone opacity likely representing a focus of airspace disease. Dictated by: Scott Rosa M.D. on 03/19/2019 at 8:34 Approved by: Scott Rosa M.D. on 03/19/2019 at 8:40
--- NOTE | 2019-03-19 08:09 | PM.PN.1 ---
Subjective Subjective Date Patient Seen: 03/19/19 Time Patient Seen: 08:00 Interval history: This morning the pt reports that he is feeling improved. He believes his work of breathing has lessened. He continues to cough, but not as frequently. He is not feeling as feverish. As per nursing, the pt continues to have high oxygen needs. Overnight, he required 6L oxygen pushed through his CPAP machine to keep his O2 sats in the upper 80s/low 90s. He is now on heated high flow NC, with O2 sats in the low 90s. Exam Vital Signs (past 8 hours): - 03/19/19 02:17 03/19/19 04:00 03/19/19 06:00 Temperature 97.4 F L Pulse Rate 62 Respiratory Rate 20 Blood Pressure 127/75 Pulse Oximetry 90 L 93 92 03/19/19 07:33 Temperature 96.8 F L Pulse Rate 77 Respiratory Rate 22 Blood Pressure 120/79 Pulse Oximetry 92 Oxygen Delivery Method Heated High Flow Oxygen Flow Rate 45 Narrative Exam Narrative: Gen: NAD, laying comfortably in bed, appears improved compared to yesterday CV: RRR, no murmurs Resp: expiratory wheezing bilateral bases, no significant crackles, air movement improved from yesterday Abd: soft, nontender, nondistended Ext: no edema Objective Labs Result Diagrams: 03/19/19 04:38 03/19/19 04:38 Labs: Laboratory Results - last 24 hr 03/18/19 03/18/19 03/18/19 09:45 09:45 09:45 WBC 5.6 RBC 4.49 L Hgb 15.1 Hct 44.1 MCV 98.2 MCH 33.7 MCHC 34.4 RDW 13.1 Plt Count 136 L Neut % (Auto) 78.2 H Lymph % (Auto) 13.3 L [place] % (Auto) 7.0 Eos % (Auto) 1.0 L Baso % (Auto) 0.5 Neut # (Auto) 4400 Lymph # (Auto) 700 L [place] # (Auto) 400 Eos # (Auto) 100 Baso # (Auto) 0 ABG pH ABG pCO2 ABG pO2 ABG HCO3 ABG Total CO2 ABG O2 Saturation ABG Base Excess FiO2 Sodium 133 L Potassium 4.0 Chloride 95 L Carbon Dioxide 25 BUN 9 Creatinine 0.50 L Estimated GFR > 60.0 BUN/Creatinine Ratio 18.0 Glucose 134 H Lactate Calcium 8.3 L Total Creatine Kinase 230 H CK-MB (CK-2) 0.92 CK-MB (CK-2) Rel Index 0.4 L Troponin I < 0.012 Procalcitonin 0.78 H Nasal Screen MRSA (PCR) Influenza A & B (PCR) 03/18/19 03/18/19 03/18/19 09:45 09:45 09:50 WBC RBC Hgb Hct MCV MCH MCHC RDW Plt Count Neut % (Auto) Lymph % (Auto) [place] % (Auto) Eos % (Auto) Baso % (Auto) Neut # (Auto) Lymph # (Auto) [place] # (Auto) Eos # (Auto) Baso # (Auto) ABG pH 7.48 H ABG pCO2 31.5 L ABG pO2 55 L ABG HCO3 23 ABG Total CO2 24 ABG O2 Saturation 91 L ABG Base Excess 0.0 FiO2 21 Sodium Potassium Chloride Carbon Dioxide BUN Creatinine Estimated GFR BUN/Creatinine Ratio Glucose Lactate 1.9 Calcium Total Creatine Kinase CK-MB (CK-2) CK-MB (CK-2) Rel Index Troponin I Procalcitonin Nasal Screen MRSA (PCR) Influenza A & B (PCR) Negative 03/18/19 03/19/19 03/19/19 13:22 04:38 04:38 WBC 6.0 RBC 4.45 L Hgb 15.1 Hct 43.9 MCV 98.6 MCH 33.9 MCHC 34.4 RDW 13.1 Plt Count 135 L Neut % (Auto) 81.5 H Lymph % (Auto) 11.9 L [place] % (Auto) 6.2 Eos % (Auto) 0.0 L Baso % (Auto) 0.4 Neut # (Auto) 4900 Lymph # (Auto) 700 L [place] # (Auto) 400 Eos # (Auto) 0 Baso # (Auto) 0 ABG pH ABG pCO2 ABG pO2 ABG HCO3 ABG Total CO2 ABG O2 Saturation ABG Base Excess FiO2 Sodium 138 Potassium 4.1 Chloride 103 Carbon Dioxide 28 BUN 11 Creatinine 0.40 L Estimated GFR > 60.0 BUN/Creatinine Ratio 27.5 H Glucose 162 H Lactate Calcium 8.6 Total Creatine Kinase CK-MB (CK-2) CK-MB (CK-2) Rel Index Troponin I Procalcitonin Nasal Screen MRSA (PCR) Negative for mrsa Influenza A & B (PCR) Assessment & Plan Assessment & Plan narrative: Pt is a 53yo man with sleep apnea who presented with profound SOB and cough, found to be hypoxic to 80% in the ER. CXR revealed significant multilobar pneumonia. 1) Acute hypoxic respiratory failure due to community acquired pneumonia: Negative flu swab. Exam with persistent wheezing, no hx of asthma/COPD, no smoking history. - Continue oxygen supplementation, titrate as tolerated - Continue Ceftriaxone and Azithromycin - Repeat Dexamethasone dosing today. Continue Albuterol with RT - Continuous pulse ox while on oxygen - Repeat CXR today due to increased oxygen needs 2) Nause and vomiting: Most likely due to coughing and possible underlying viral illness - Zofran PRN FEN: General diet as tolerated DVT PPx: Lovenox Code: Full Dispo: Pending respiratory improvement - pt should not need oxygen supplementation at discharge. Anticipate at least 2 additional midnights. Quality VTE Deep Vein Thrombosis/Pulmonary Embolism Present on Admission: No
[2019-03-19] MEDS: guaiFENesin ER 600 MG TAB 1200 MG PO ×2 (08:35→20:36)
[2019-03-19] MEDS: ENOXAPARIN 40 MG/0.4 ML SYRINGE SUBCUT (08:36)
[2019-03-19] MEDS: methylPREDNISolone 125 MG/2 ML VIAL IV (08:57)
[2019-03-19] MEDS: AZITHROMYCIN 500 MG in DEXTROSE 5% IN WATER 250 ML IV (11:45)
[2019-03-19] MEDS: CEFTRIAXONE 1 GM/50 ML FROZ.PIGGY IV (12:57)
--- NOTE | 2019-03-19 13:47 | CM.DANOTE ---
Patient is a 53 year old male who was admitted on 03/18/19 for SOB. Pt has [employer] for insurance and his PCP is Dr. Melendez. EMR was reviewed. Per MD, pt with hypoxic respiratory failure and community required pneumonia and currently on IV-Abx and requiring heated high flow oxygen. Per RN, pt fairly sick currently but likely will progress quickly with no anticipated d/c planning needs. SW met bedside with pt and explained role and updated white board and pt confirms that he lives at home in [place] with his and young adult Dtr and is Independent at baseline with ADL's. Pt states that he and spouse are retired and therefore spouse available for assist if needed at d/c and Dtr resides with them but is working and an active young adult. Pt denies any hx of HH or SNF and his first hospitalization for medical needs. Pt does not anticipate d/c planning needs and preference is to d/c home with family when medically stable. Plan: SW to follow closely to confirm that pt progresses enough for safe d/c home with spouse when medically stable. SW to follow for any further identified discharge planning needs. JAMES Costa Discharge Planning/Care Management CM Discharge Assessment Start: 03/19/19 13:40 Freq: Status: Active Protocol: Document 03/19/19 13:40 BF (Rec: 03/19/19 13:43 BF [id number]) Discharge Planning Assessment Assigned Private Security Guard JAMES Izquierdo Advance Directives? No History Provided By Patient,Medical Record Has Patient been admitted in last 30 No days? Prior Living Arrangements House Household Members family Type of transporation used prior to Drives own vehicle admit Independent with ADL's Yes Is patient alert and oriented? Yes Caregiver for Another No: Dtr living at home but independent Comment Likely home pending progress Barriers to Discharge No Discharge Plan Home Transportation Arrangement Spouse retired and likely can provide transport if safe for home Referrals Initiated None needed Whiteboard Updated in Patient Room with Yes name and ext. # of Private Security Guard Review Status In Process Please Provide Date Initial DC 03/19/19 Assessment Was Performed Next Review Type Continued Stay Review
[2019-03-19] MEDS: ZOLPIDEM 5 MG TABLET PO (20:36)
[2019-03-20] VITALS (13 sets, daily range): BP systolic 122–148; BP diastolic 79–93; PULSE 55–88; RESP 16–20; TEMP 35.9–37.2; O2SAT 92–97
--- NOTE | 2019-03-20 07:40 | P.PN_ITS ---
Subjective Subjective Date Patient Seen: 03/20/19 Time Patient Seen: 07:40 Interval history: Pneumonia. Feeling somewhat better. Still had a very restless night for varies some reason. Cough has persisted occasionally productive of mucus unclear about what color as he swallows. No chest pain no palpitations no headaches. He is urinating and had a bowel movement. Appetite is returning. Has not been very active in the hospital here. Overall he feels better but still feels weak and coughing requiring supplemental oxygen as stated Exam Vital Signs (past 8 hours): - 03/19/19 23:52 03/20/19 02:00 03/20/19 04:11 Temperature 97.9 F 96.7 F L Pulse Rate 72 88 Respiratory Rate 20 20 Blood Pressure 129/67 139/79 Pulse Oximetry 91 96 92 03/20/19 06:00 Temperature Pulse Rate Respiratory Rate Blood Pressure Pulse Oximetry 93 Fraction of Inspired Oxygen 40.5 Oxygen Delivery Method Heated High Flow Oxygen Flow Rate 38 Narrative Exam Narrative: Patient is resting quietly in hospital bed with his high-flow nasal prongs present. He appears in no distress coughs intermittently that sounds productive but a swallows it. HEENT is unremarkable. Chest exam he is able to take a deep breath he has rales and wheezes on the left side with some expiratory rhonchi. On the right side decrease noises is some expiratory rhonchi on the right. Cardiac exam regular rhythm no murmur gallop. Abdominal exam is benign Objective Labs Result Diagrams: 03/19/19 04:38 03/19/19 04:38 Labs: Labs from the this morning is noted. Chest x-ray was yesterday essentially unchanged Assessment & Plan Assessment & Plan narrative: Patient with community-acquired pneumonia that is improving. He does have fair amount reactive airway based on my exam. I will put him on maintenance steroids he was given a couple as needed doses apparently . His cough has improved and and sputum production has improved. Still require a fair amount of supplemental oxygen at high flow. Today we will get him out of bed and will start him on some maintenance steroids. RT to work with him again. Continue with current IV antibiotics per schedule Dr. Melendez to resume care tomorrow Quality VTE Deep Vein Thrombosis/Pulmonary Embolism Present on Admission: No
[2019-03-20] MEDS: methylPREDNISolone 125 MG/2 ML VIAL 60 MG IV ×2 (10:24→16:35)
[2019-03-20] MEDS: ENOXAPARIN 40 MG/0.4 ML SYRINGE SUBCUT (10:25)
[2019-03-20] MEDS: guaiFENesin ER 600 MG TAB 1200 MG PO ×2 (10:26→21:19)
--- NOTE | 2019-03-20 11:20 | PC.NURSE ---
pt feels some improvement placed on hfnc 13 liters from hhfnc- able to wean down to 9l prior to shower- strong productive cough- showered and appetite improving
[2019-03-20] MEDS: SODIUM CHLORIDE 0.9% 250 ML 21 ML IV (11:28)
[2019-03-20] MEDS: AZITHROMYCIN 500 MG in DEXTROSE 5% IN WATER 250 ML IV (11:48)
[2019-03-20] MEDS: CEFTRIAXONE 1 GM/50 ML FROZ.PIGGY IV (13:32)
[2019-03-20] MEDS: ZOLPIDEM 5 MG TABLET PO (22:30)
[2019-03-21] VITALS (10 sets, daily range): BP systolic 118–150; BP diastolic 74–97; PULSE 54–76; RESP 18–20; TEMP 36.3–37.3; O2SAT 91–98
[2019-03-21] MEDS: methylPREDNISolone 125 MG/2 ML VIAL 60 MG IV ×3 (00:05→16:23)
[2019-03-21 05:17] LABS: Add Manual Diff / Slide Review NO; Basophils Absolute Auto 0 /uL (0-100); Basophils Percent Auto 0.2 % (0-2); Eosinophils Absolute Auto 0 /uL (0-450); Hematocrit 44.1 % (41-53); Hemoglobin 15.3 g/dL (13.5-17.5); Lymphocytes Absolute Auto 800 /uL (1100-4500); Lymphocytes Percent Auto 12.3 % (25-40); Mean Corpuscular HGB Conc 34.8 % (30-36); Mean Corpuscular Volume 97.7 fL (80-100); Monocytes Absolute Auto 400 /uL (0-900); Monocytes Percent Auto 5.6 % (3-14); Neutrophils Absolute Auto 5200 /uL (1500-7000); Neutrophils Percent Auto 81.9 % (50-75); Platelet Count 182 X10^3/uL (150-400); Red Blood Cell Count 4.51 X10^6/uL (4.5-5.9); Red Cell Distribution Width 13.5 % (11.6-14.8); White Blood Cell Count 6.4 X10^3/uL (4.5-11.0)
--- NOTE | 2019-03-21 08:04 | DI.RAD.S_ITS ---
PROCEDURE: XR CHEST 1V INDICATIONS: pneumonia TECHNIQUE: One view of the chest was acquired. COMPARISON: [facility], CR, XR CHEST 1V, 03/19/2019, 8:11. FINDINGS: Surgical changes and devices: None. Lungs and pleura: Left mid lobe pneumonia has improved, with increased aeration. There is also improved aeration of the retrocardiac left lower lobe. No pleural effusions or pneumothorax. Mediastinum: Mediastinal contours appear normal. Heart size is normal. Bones and chest wall: No suspicious bony lesions. Overlying soft tissues appear unremarkable. IMPRESSION: Improved appearance of left mid and lower lobe pneumonia since 03/18/19. Recommend continued radiographic surveillance to document complete resolution and exclude underlying pulmonary nodule. Dictated by: Wade Sahu M.D. on 03/21/2019 at 9:53 Approved by: Wade Sahu M.D. on 03/21/2019 at 10:06
[2019-03-21] MEDS: guaiFENesin ER 600 MG TAB 1200 MG PO (08:37)
[2019-03-21] MEDS: ENOXAPARIN 40 MG/0.4 ML SYRINGE SUBCUT (08:38)
--- NOTE | 2019-03-21 11:20 | PC.NURSE ---
Addendum entered by Wade Butler R.N. 03/21/19 13:41: Spoke with Dr. Melendez. Reported pt on RA with sats 90-93%, adamantly wanting to go home today. Dr. Melendez states she will round after clinic (~1630) and likely discharge. She would like the patient to receive abx and solu medrol prior to d/c. Updated pt. Addendum entered by Wade Butler R.N. 03/21/19 12:43: Called to Dr. Melendez's office per pt request. Pt would like to know when Dr will make rounds again. He is curious to know if he can go home. Left message to return call ext [phone]. Original Note: Ambulated in hallway independently without AD on RA. 5 laps around the RNs station. Pt denies significant shortness of breath with activity. His gait is steady SPO2 ranges 90-93% with activity. After walking, pt returned to room and sat up to chair. Remains on RA with SPO2 range 90-93%. Pt is using IS and accapella independently. He is able to get up to 2000 ML with 5 consecutive breaths. Pt is motivated to go home with his goal of today. CXR done this AM shows improvement. Will monitor.
--- NOTE | 2019-03-21 12:08 | CM.DPC ---
DCP continued: EMR Reviewed: COLIN spoke to DR. Melendez about pt wanting to go home today but patient is still on 9lt O2. Patient is working on weaning down off of o2. Dr. Melendez is wondering if there is a way that we can D/C the patient home with home o2. CM called Dr. Melendez's nurse at [phone] but was unable to reach nurse. CM called ICU nurse for patient and explained that an order needs to be put in to RN to evaluate Patient for Home O2. Cm will call Dr. Melendez again. Patient seems to be doing well according to nursing note with weening off of O2. Plan is for patient to DC home with when medically stable. Irish Duke RN
[2019-03-21] MEDS: AZITHROMYCIN 500 MG in DEXTROSE 5% IN WATER 250 ML IV (12:31)
[2019-03-21] MEDS: CEFTRIAXONE 1 GM/50 ML FROZ.PIGGY IV (14:17)
--- NOTE | 2019-03-21 16:07 | PM.DS.1 ---
History of Present Illness History of Present Illness Chief complaint: difficulty breathing Narrative: The pt is a 53-year-old man with a history of sleep apnea who presents with profound shortness of breath and cough. The patient reports that for the past 2 weeks he has been feeling progressively more short of breath. He has also had a cough that is intermittently productive of yellow sputum. At the start of his illness, he had significant nausea with profuse vomiting. This was not necessarily associated with his coughing spells. He has been taking mainly fluids in since that time. For approximately the past week he has been having temperatures at home frequently. The highest temperature he caught on his thermometer was 101?F. He has been feeling wheezing as well. He was evaluated in the emergency department on 03/13 and diagnosed with a viral respiratory illness. Chest x-ray and lab work was completed at that time that was unrevealing. He was discharged home. His shortness of breath continued to worsen, and this morning he felt that he could not catch his breath. He continues to cough. His cough is productive of bloody sputum. He is feeling extremely fatigued. He now also has anterior chest pain that is worse with deep breathing. The patient denies any ear pain, significant sore throat, sinus pain or pressure. He has had mild intermittent diarrhea. He denies any significant abdominal pain. Prior to this illness he was feeling well. Discharge Providers Provider Date of admission: 03/18/19 11:14 Discharge Date: 03/21/19 Primary care physician: Destiny Melendez MD Consults: 03/18/19 13:24 Consult to Respiratory Therapy Evaluate & Treat Comment: Physician Instructions: Evaluate and treat Discharge provider: Destiny Melendez MD Summary Hospital Course Discharge Diagnosis: Community acquired pneumonia Acute hypoxic respiratory failure - resolved Hospital Course: The pt was admitted with community acquired pneumonia causing acute hypoxic respiratory failure. He was started on Ceftriaxone and Azithromycin in the emergency department, which was continued during his hospitalization. The patient initially required significant amount of oxygen via high-flow nasal cannula. This was weaned off during his hospitalization, at the time of discharge he had no oxygen requirement. The patient was noted to have significant wheezing while in the hospital, and was started on IV steroids. He will be continued on p.o. steroids at discharge. At the time of discharge, he had a moderate cough, but was otherwise feeling well. He denied any shortness of breath. He had been afebrile for more than 2 days. The patient will be discharged home and continued on p.o. antibiotics. He is being prescribed albuterol for as needed use. He will be honest prednisone taper. He will follow up in clinic in 1 week with chest x-ray prior to that time to ensure resolution of his pneumonia. Status at Discharge Cognitive/behavioral status at discharge: oriented Functional status at discharge: independent ambulation Overall status at discharge: patient is progressing back to baseline Time Spent with Patient Time spent: Greater than 30 minutes Exam Vital Signs (past 8 hours): - 03/21/19 08:38 03/21/19 09:48 03/21/19 11:00 Temperature 99.0 F Pulse Rate 72 76 Respiratory Rate 18 18 Blood Pressure 118/74 Pulse Oximetry 95 93 92 03/21/19 12:00 03/21/19 15:40 Temperature 98.5 F Pulse Rate 63 Respiratory Rate 18 Blood Pressure 134/85 Pulse Oximetry 93 91 Fraction of Inspired Oxygen 40.5 Oxygen Delivery Method Room Air Oxygen Flow Rate 0 Narrative Exam Narrative: Gen: NAD, sitting comfortably in bed, appears well, nasal canula in place CV: RRR, no murmurs Resp: clear to auscultation bilaterally Abd: soft, nontender, normoactive bowel sounds Ext: no edema Objective Labs Result Diagrams: 03/21/19 04:50 03/19/19 04:38 Labs: Laboratory Results - last 24 hr 03/21/19 04:50 WBC 6.4 RBC 4.51 Hgb 15.3 Hct 44.1 MCV 97.7 MCH 34.0 MCHC 34.8 RDW 13.5 Plt Count 182 Neut % (Auto) 81.9 H Lymph % (Auto) 12.3 L [place] % (Auto) 5.6 Eos % (Auto) 0.0 L Baso % (Auto) 0.2 Neut # (Auto) 5200 Lymph # (Auto) 800 L [place] # (Auto) 400 Eos # (Auto) 0 Baso # (Auto) 0 Discharge Plan Discharge Plan Patient Disposition: Home Discharge Med Rec/Prescriptions Prescriptions: New guaifenesin [Mucus Relief ER] 600 mg Tablet Extended Release 12hr 1,200 mg PO BID Qty: 20 RF: 0 albuterol sulfate 90 mcg/actuation HFA aerosol inhaler 1 inhalation INHALATION QID PRN (Reason: shortness of breath or wheezing) Qty: 6.7 RF: 2 azithromycin 250 mg tablet 250 mg PO DAILY Qty: 1 RF: 0 cefpodoxime 200 mg tablet 200 mg PO BID Qty: 20 RF: 0 prednisone 20 mg tablet 20 mg PO DAILY Qty: 15 RF: 0 Follow up/Referrals: Destiny Melendez MD [Primary Care Provider] - 1 Week (With chest x-ray to be completed prior to appointment) Provider Discharge Instructions Diet: Diet as Tolerated and Regular Skin/Wound/Dressing Care Report to your healthcare provider any signs of infection, such as:: chills, fever Visit Report/Discharge Packet Instructions: DI for Pneumonia -- Adult Visit Report Forms: Patient Portal/API, Stroke Signs & Symptoms Discharge Data Primary Care Provider: Destiny Melendez Quality VTE Deep Vein Thrombosis/Pulmonary Embolism Present on Admission: No
== END 2019-03-21 17:10 | disposition home or self-care (01) | DRG 189 ==
LOC: ED 10:50 → AC 11:14 → ICU 13:21
PROVIDERS: Family Medicine; Admitting Provider Family Medicine; Emergency Provider Emergency Medicine; PCP Family Medicine; Visit Provider Family Medicine
DX: J96.01 Acute respiratory failure with hypoxia (principal); J18.9 Pneumonia, unspecified organism; G47.30 Sleep apnea, unspecified; R11.2 Nausea with vomiting, unspecified
CPT/HCPCS: 36415; 36600; 71045; 71046; 80048; 82550; 82553; 82805; 83605; 84145; 84484; 85025; 87040; 87070; 87147; 87205; 87502; 87797; 94640; 94760; 94762; 96365; 96375; 99222; 99232; 99238; 99283; 99284; J1650; J2930

== ENCOUNTER → 2019-03-28 10:34 | Outpatient (CLI) | payer MEDICAID, SELFPAY ==
[2019-03-18 13:30] VITALS: BMI 37.0
--- NOTE | 2019-03-28 10:37 | DI.RAD.S_ITS ---
PROCEDURE: XR CHEST 2V INDICATIONS: pneumonia TECHNIQUE: 2 views of the chest were acquired. COMPARISON: [facility], CR, XR CHEST 1V, 03/21/2019, 9:03. FINDINGS: Surgical changes and devices: None. Lungs and pleura: Lungs are clear. No pleural effusions or pneumothorax. Mediastinum: Mediastinal contours are normal. Heart size is normal. Bones and chest wall: No suspicious bony abnormalities. Soft tissues appear unremarkable. Chronic appearing right rib fracture IMPRESSION: No interval change or acute disease. Dictated by: Wade Sahu M.D. on 03/28/2019 at 13:50 Approved by: Wade Sahu M.D. on 03/28/2019 at 13:50
== END ==
PROVIDERS: PCP Family Medicine; Visit Provider Family Medicine
DX: J18.9 Pneumonia, unspecified organism (principal)
CPT/HCPCS: 71046